=== PATIENT | female | born 1960 | race Caucasian/White ===

== ENCOUNTER 2016-11-27 08:44 | Emergency (ER) | payer OTHER, MEDICAID ==
[2016-11-27 08:54] VITALS: BP 115/77; PULSE 77; RESP 20; TEMP 98.1; O2SAT 98
--- NOTE | 2016-11-27 09:30 | EDPHY ---
General - History Smoking Status: Never smoked Narrative: CHIEF COMPLAINT: Left knee pain, difficulty with brace HISTORY OF PRESENT ILLNESS: Patient is a history of a meniscal injury that occurred several weeks ago. She says that she was diagnosed with a meniscus injury. This was in [place] with Dr. Loza. She is scheduled to have surgery on December 16. She has been provided a hinged knee brace. Her complaint is that the knee brace to bake. That it slides down her leg when she walks. When it does show becomes very painful as a slides. She has attempted a neoprene sleeve under this but is still slightly down. She is here asking for a new knee brace. She is not taking any anti-inflammatories because she is afraid that she will not be able to have surgery should they be able to take her to surgery sooner than scheduled. The pain is intermittently present. Does clean catch. She is applying ice. She has no redness or swelling of the calf. No pain in the calf. She is not asking for pain medications, she is only asking for a new brace. No other associated complaints or modifying factors. PRIOR ORTHO INJURIES: Left meniscus injury ESTABLISHED ORTHOPEDIST: Dr. Loza, [place] REVIEW OF SYSTEMS: Ten systems reviewed and are negative unless otherwise noted in the HPI EXAMINATION General Appearance: Alert, no distress Cardiovascular: Pulses normal throughout. Symmetric DP pulses. Brisk cap refill Neurological: A&O, sensory symmetric, strength symmetric Skin: Warm and dry, no rash Extremities: Tenderness to palpation bilateral joint line on the left knee. There is no crepitus or laxity. No instability. Negative drawer. Wilda's test not performed due to known diagnosis and pain. No evidence of DVT. Psychiatric: Mood and affect normal MDM: 9:25 a.m. Patient complains of discomfort with her left knee hinged brace. The pain is intermittently present without the brace. Her concern is that the braces falling down. She is asking for a new brace. I informed her that we do not have hand used knee braces here in the emergency department. I informed her that we would be happy to provide crutches for her. She says that she is not comfortable on crutches that she has fallen on the past. I informed her that there are really no other modalities here that we can provide other than Quincy wraps. She said she will try to put 2 Quincy wraps on under her hinged knee brace. Informed her that her other option is to simply remain nonambulatory today at home. She can ice and elevate the knee and contact her surgeon in the morning to try and obtain a new brace tomorrow. She remains neurovascularly intact she will be discharged home with the Quincy wraps under her existing knee brace. ED Precautions: Worsening pain. Erythema, edema, cyanosis, pallor, paresthesia or anesthesia. SUPERVISION: This patient was independently evaluated without direct examination by the attending physician. Case was discussed with attending physician. (Theo Anne) Medical Decision Making: I did not see this patient while she was in the emergency department. However her care was discussed with the PA while the patient was in the department. I agree with treatment plan and management (Satnam Watts) - Objective Vital Signs: Initial Vital Signs Temperature (C) 36.7 C 11/27/16 08:51 Heart Rate 77 11/27/16 08:51 Respiratory Rate 20 11/27/16 08:51 Blood Pressure 115/77 11/27/16 08:51 O2 Sat (%) 98 11/27/16 08:51 O2 Delivery Mode Room Air Allergies/Adverse Reactions: tetracycline [Tetracycline] Allergy (Verified 06/29/14 19:36) Home Medications: Medication Instructions Recorded Adderall 10 MG (*) 11/27/16 Valium 11/27/16 Departure - Departure Disposition: Home, Routine, Self-Care Clinical Impression: Acute meniscal injury of left knee Qualifiers: Encounter type: initial encounter Qualified Code(s): S83.8X2A - Sprain of other specified parts of left knee, initial encounter Condition: Good Instructions: Meniscus Tear (ED) Additional Instructions: Weightbearing as tolerated. If not tolerating your brace, ice and elevate the leg and contact her orthopedic surgeon in the morning. Return to the ER for worsening pain, numbness or redness of the calf. Referrals: Doctor Payam,On Staff, [Medical Doctor] - As per Instructions Wu Lei MD [Medical Doctor] - As per Instructions
== END 2016-11-27 09:35 | disposition home or self-care (01) ==
DX: S83.8X2A Sprain of other specified parts of left knee, initial encounter (principal); X58.XXXA Exposure to other specified factors, initial encounter

== ENCOUNTER → 2017-05-19 | Outpatient (CLI) | payer OTHER, MEDICAID | LOC: FIMAGING 13:35 | PROVIDERS: ATTEND Physician Assistant Medical | DX: Z12.31 Encounter for screening mammogram for malignant neoplasm of breast (principal) | CPT/HCPCS: G0202 ==

== ENCOUNTER 2017-06-21 20:29 | Emergency (ER) | payer OTHER, MEDICAID ==
[2017-06-21 20:39] VITALS: RESP 16
[2017-06-21] MEDS ORDERED: IBUPROFEN 600 MG TAB PO ONE ×2 (20:52→20:53)
--- NOTE | 2017-06-21 21:40 | EDPHY ---
H & P Time Seen by Provider: 06/21/17 20:56 HPI/ROS: CHIEF COMPLAINT: Left hand injury HISTORY OF PRESENT ILLNESS: 56-year-old female presents to the emergency department with injury to her left hand. Patient was at a friend's house and accidentally cut her left hand in a mouse trap. She is complaining of pain to the dorsal aspect of her left hand. The incident happened just a few hours prior to arrival. Denies any other trauma or injury. She is right-hand dominant. She has pain especially with movement of her left hand. ROS: Denies numbness or tender fingers, pain in her left wrist or elbow. Past Medical/Surgical History: Migraine headaches, abdominal surgery, intracranial hemorrhage Social History: and lives in [place] Smoking Status: Never smoked Physical Exam: On examination the patient has swelling and some mild redness to dorsal aspect of her left hand especially over the 3rd metacarpal and 3rd MCP joint. She has tenderness with palpation over the 3rd metacarpal as well as slightly over the 2nd metacarpal as well. No palpable crepitus or other bony abnormality. No rotational deformities noted. No abrasion or puncture wound. She has full range of motion of fingers. Full range of motion of her wrist. Normal sensation to light touch with normal 2 point discrimination. Strong radial pulse left wrist. Constitutional: Initial Vital Signs Temperature (C) 36.7 C 06/21/17 20:34 Heart Rate 70 06/21/17 20:34 Respiratory Rate 16 06/21/17 20:34 Blood Pressure 157/79 H 06/21/17 20:34 O2 Sat (%) 96 06/21/17 20:34 O2 Delivery Mode Room Air Allergies/Adverse Reactions: tetracycline [Tetracycline] Allergy (Verified 06/21/17 20:34) Home Medications: Medication Instructions Recorded Adderall 10 MG (*) 11/27/16 Valium 11/27/16 MDM/Departure - MDM Imaging Results: Imaging Impressions Hand X-Ray 06/21/17 20:38 Impression: Negative. No acute fracture. Imaging: I viewed and interpreted images myself Medications Given: Discontinued Medications Ibuprofen (Motrin) 600 mg PO EDNOW ONE Stop: 06/21/17 20:54 Last Admin: 06/21/17 20:56 Dose: 600 mg ED Course/Re-evaluation: 56-year-old female presents to the Emergency verbal left hand injury. X-rays reveal no fractures. She was given orthopedic follow-up information. - Depart Disposition: Home, Routine, Self-Care Clinical Impression: Contusion of left hand Qualifiers: Encounter type: initial encounter Qualified Code(s): S60.222A - Contusion of left hand, initial encounter Condition: Good Instructions: Contusion in Adults (ED) Additional Instructions: Ice. Elevate for comfort. Ibuprofen 400-600mg every 8 hours for pain and swelling as directed. Return if you develop numbness or tingling in your fingers or if you feel worse in any way. Referrals: Melony Silva MD [Medical Doctor] - 5-7 days, call for appt. (Orthopedic hand surgeon on-call)
[2017-06-21 22:02] VITALS: BP 116/76; PULSE 78; TEMP 97.9; O2SAT 92
== END 2017-06-21 22:00 | disposition home or self-care (01) ==
DX: S60.222A Contusion of left hand, initial encounter (principal); W45.8XXA Other foreign body or object entering through skin, initial encounter

== ENCOUNTER 2018-10-14 15:14 | Emergency (ER) | payer OTHER, MEDICAID | END 2018-10-14 16:00 | disposition home or self-care (01) ==